=== PATIENT | female | born 1960 | race Caucasian/White ===

== ENCOUNTER → 2016-12-24 | Outpatient (CLI) | payer SELFPAY ==
--- NOTE | 2016-12-25 08:26 | MM ---
Reason for exam: screening (asymptomatic). Last mammogram was performed 2 years and 8 months ago. History: Patient is postmenopausal. Family history of breast cancer in paternal aunt and breast cancer in maternal aunt. Physical Findings: A clinical breast exam by your physician is recommended on an annual basis and results should be correlated with mammographic findings. MG 3D Screening Mammo W/Cad Bilateral CC and MLO view(s) were taken. Prior study comparison: May 05, 2014, mammogram, performed at [facility]. April 30, 2013, mammogram, performed at [facility]. The breast tissue is heterogeneously dense. This may lower the sensitivity of mammography. There is no discrete abnormality. ASSESSMENT: Negative, BI-RAD 1 RECOMMENDATION: Routine screening mammogram of both breasts in 1 year.
== END | disposition home or self-care (01) ==
LOC: RADMAMWWP 07:00
PROVIDERS: ATTEND Obstetrics & Gynecology
DX: Z12.31 Encounter for screening mammogram for malignant neoplasm of breast (principal); Z80.3 Family history of malignant neoplasm of breast
CPT/HCPCS: 77063; G0202

== ENCOUNTER → 2017-12-30 | Outpatient (CLI) | payer OTHER ==
--- NOTE | 2017-12-31 11:24 | MM ---
Reason for exam: screening (asymptomatic). Last mammogram was performed 1 year ago. History: Patient is postmenopausal. Family history of breast cancer in paternal aunt and breast cancer in maternal aunt. Physical Findings: A clinical breast exam by your physician is recommended on an annual basis and results should be correlated with mammographic findings. MG 3D Screening Mammo W/Cad Bilateral CC and MLO view(s) were taken. Prior study comparison: December 24, 2016, bilateral MG 3d screening mammo w/cad. May 05, 2014, mammogram, performed at [facility]. There are scattered fibroglandular densities. No significant changes when compared with prior studies. ASSESSMENT: Negative, BI-RAD 1 RECOMMENDATION: Routine screening mammogram of both breasts in 1 year.
== END | disposition home or self-care (01) ==
LOC: RADMAMWWP 07:41
PROVIDERS: ATTEND Obstetrics & Gynecology
DX: Z12.31 Encounter for screening mammogram for malignant neoplasm of breast (principal); Z80.3 Family history of malignant neoplasm of breast
CPT/HCPCS: 77063; 77067

== ENCOUNTER 2021-01-31 08:16 | Day surgery (SDC) | payer OTHER ==
[2021-01-26 12:13] VITALS: BMI 29.2
[~2021-01-31 08:16] MED LIST: LIDOCAINE 1% (10MG/ML) FOR IV START INTRADERMA PRN
[2021-01-31 08:56] VITALS: TEMP 97.1
[2021-01-31] MEDS: LACTATED RINGERS 1,000 ML IV SCH ×2 (09:00→09:06)
[2021-01-31] MEDS ORDERED: LIDOCAINE 1% INJ 10MG/ML (20 ML MDV) ONE (09:07)
[2021-01-31] MEDS ORDERED: PROPOFOL 10 MG/ML 20 ML VIAL IV ONE (09:07)
--- NOTE | 2021-01-31 09:24 | P.PCN ---
Date of Procedure: 01/31/21 Procedure(s) Performed: BRIEF HISTORY: Patient is a 41-year-old pleasant white female scheduled for an elective colonoscopy as a part of screening for colorectal neoplasia. Her mother was diagnosed with colon cancer at age 70. PROCEDURE PERFORMED: Colonoscopy. PREOPERATIVE DIAGNOSIS: Screening for colon cancer and family history of colon cancer. IV sedation per Anesthesia. PROCEDURE: After informed consent was obtained, the patient, was brought into the endoscopy unit. IV sedation was administered by Anesthesia under continuous monitoring. Digital rectal examination was normal. Initially the Olympus CF-160 flexible video colonoscope was then inserted in the rectum, gradually advanced into the cecum without any difficulty. Careful examination was performed as the scope was gradually being withdrawn. Ileocecal valve and the appendiceal orifice were visualized and appeared normal. Prep was excellent. Mucosa of the cecum, ascending colon, transverse colon, descending colon, sigmoid colon, and rectum appeared normal. Retroflexion was performed in the rectum and no lesions were seen. The patient tolerated the procedure well. IMPRESSION: Normal-appearing colon from rectum to cecum with no evidence of colorectal neoplasia. RECOMMENDATIONS: Findings of this examination were discussed with the patient is a family. She was advised to have a repeat screening coloscopy every 5 years because of the strong family history of colon cancer..
[2021-01-31 09:46] VITALS: BP 109/68; PULSE 66; RESP 18
== END 2021-01-31 10:05 | disposition home or self-care (01) ==
LOC: ORWHC2ENDO 08:16
PROVIDERS: ATTEND Internal Medicine Gastroenterology
DX: Z12.11 Encounter for screening for malignant neoplasm of colon (principal); Z80.0 Family history of malignant neoplasm of digestive organs; R25.1 Tremor, unspecified; R19.4 Change in bowel habit; Z79.899 Other long term (current) drug therapy
CPT/HCPCS: J2001; J2704; G0105

== ENCOUNTER → 2022-07-02 | Outpatient (CLI) | payer OTHER ==
--- NOTE | 2022-07-02 09:25 | MM ---
Reason for Exam: Screening (asymptomatic). Last mammogram was performed 1 year(s) and 3 month(s) ago. Patient History: Menarche at age 18. First Full-Term at age 32. Late child-bearing (after 30). Postmenopausal. Patient has history of breast feeding. Paternal aunt had breast cancer. Maternal aunt had breast cancer. Risk Values: Brooke 5 year model risk: 1.8%. NCI Lifetime model risk: 9.1%. Prior Study Comparison: 04/30/2013 Screening Mammogram, [facility]. 05/05/2014 Screening Mammogram, [facility]. 12/24/2016 Bilateral Screening Mammogram, [facility]. 12/30/2017 Bilateral Screening Mammogram, [facility]. 04/26/2021 Bilateral MG 3D screening mammo w/cad, [facility]. Tissue Density: The breast tissue is heterogeneously dense. This may lower the sensitivity of mammography. Findings: Analyzed By CAD. There is no suspicious group of microcalcifications or new suspicious mass in either breast. Overall Assessment: Negative, BI-RAD 1 Management: Screening Mammogram of both breasts in 1 year. A clinical breast exam by your physician is recommended on an annual basis and results should be correlated with mammographic findings. Electronically signed and approved by: Juan Hu D.O.
== END | disposition home or self-care (01) ==
LOC: RADMAMWWP 06:42
PROVIDERS: ATTEND Obstetrics & Gynecology
DX: Z12.31 Encounter for screening mammogram for malignant neoplasm of breast (principal); Z78.0 Asymptomatic menopausal state; Z80.3 Family history of malignant neoplasm of breast
CPT/HCPCS: 77063; 77067

== ENCOUNTER → 2023-08-28 | Outpatient (CLI) | payer OTHER ==
--- NOTE | 2023-08-28 20:22 | MM ---
Reason for Exam: Screening (asymptomatic). Last mammogram was performed 1 year(s) and 1 month(s) ago. Patient History: Menarche at age 18. First Full-Term at age 32. Late child-bearing (after 30). Postmenopausal. Patient has history of breast feeding. Paternal aunt had breast cancer. Maternal aunt had breast cancer. Risk Values: Brooke 5 year model risk: 1.9%. NCI Lifetime model risk: 8.9%. Prior Study Comparison: 12/24/2016 Bilateral Screening Mammogram, [facility]. 12/30/2017 Bilateral Screening Mammogram, [facility]. 04/26/2021 Bilateral MG 3D screening mammo w/cad, [facility]. 07/02/2022 Bilateral MG 3D screening mammo w/cad, [facility]. Tissue Density: The breasts are heterogeneously dense, which may obscure small masses. Findings: Analyzed By CAD. Poorly defined regional density in the right axilla has developed in the interval. Further evaluation is recommended. On the left, gradually enlarging focal asymmetry posterior upper quadrant for which further evaluation is recommended. Overall Assessment: Incomplete: need additional imaging evaluation, BI-RAD 0 Management: Special View Mammogram of both breasts. Diagnostic Breast Ultrasound of both breasts. Additional views right breast to include 3-D XCCL, spot 3-D MLO, and 3-D lateral views. Additional views left breast. Bilateral targeted ultrasounds. [facility] will attempt to contact patient to return for supplemental views and ultrasound if indicated. Electronically signed and approved by: Ivone Bradley M.D. Radiologist
== END | disposition home or self-care (01) ==
LOC: RADMAMWWP 08:10
PROVIDERS: ATTEND Obstetrics & Gynecology
DX: Z12.31 Encounter for screening mammogram for malignant neoplasm of breast (principal); Z80.3 Family history of malignant neoplasm of breast; Z78.0 Asymptomatic menopausal state
CPT/HCPCS: 77063; 77067

== ENCOUNTER → 2023-09-04 | Outpatient (CLI) | payer OTHER ==
--- NOTE | 2023-09-04 08:51 | MM ---
Reason for Exam: Additional evaluation requested from abnormal screening. Last screening mammogram was performed less than 1 month ago. Patient History: Menarche at age 18. First Full-Term at age 32. Late child-bearing (after 30). Postmenopausal. Patient has history of breast feeding. Paternal aunt had breast cancer. Maternal aunt had breast cancer. Risk Values: Brooke 5 year model risk: 1.9%. NCI Lifetime model risk: 8.9%. Prior Study Comparison: 07/02/2022 Bilateral MG 3D screening mammo w/cad, [facility]. 08/28/2023 Bilateral MG 3D screening mammo w/cad, [facility]. Tissue Density: The breasts are heterogeneously dense, which may obscure small masses. Findings: Analyzed By CAD. The strandy area of asymmetric density within the right axilla improves on spot 3-D MLO view. The overall appearance to the axillary lymph nodes here is unchanged. On the left, reniform shape to the posterior upper-outer quadrant isodense to low density nodularity, suspect a low axillary tail lymph node which is larger compared to older 2017 prior. Ultrasound can be performed. Overall Assessment: Incomplete: need additional imaging evaluation, BI-RAD 0 Management: Diagnostic Breast Ultrasound of both breasts. Electronically signed and approved by: Ivone Bradley M.D. Radiologist
--- NOTE | 2023-09-04 09:28 | USB ---
Reason for Exam: Additional evaluation requested from abnormal screening. Patient History: Menarche at age 18. First Full-Term at age 32. Late child-bearing (after 30). Postmenopausal. Patient has history of breast feeding. Paternal aunt had breast cancer. Maternal aunt had breast cancer. Risk Values: Brooke 5 year model risk: 1.9%. NCI Lifetime model risk: 8.9%. Technique: Method: Targeted. Prior Study Comparison: 04/26/2021 Bilateral MG 3D screening mammo w/cad, [facility]. 07/02/2022 Bilateral MG 3D screening mammo w/cad, [facility]. 08/28/2023 Bilateral MG 3D screening mammo w/cad, [facility]. Findings: The upper outer quadrant of the left breast, the axilla of both breasts and the retroareolar of the left breast were scanned. On the right, targeted axial ultrasound shows no abnormal solid or cystic lesion. Some lymph nodes are present, some of these cortices are borderline at 3 mm but uniform in appearance and appear to be unchanged on mammogram. On the left, scanning of the upper outer quadrant, axilla, and subareolar region. Subareolar duct ectasia is noted. At the 2:00 position, 8 cm from the nipple, there is a 1.7 x 1.6 x 0.5 cm probable cyst cluster, likely mammographic correlate. Six-month follow-up recommended. No other solid or cystic lesion or axillary lymphadenopathy. Overall Assessment: Probably benign, BI-RAD 3 Management: Diagnostic Breast Ultrasound of the left breast in 6 months. For a probable cyst cluster, likely mammographic correlate two o'clock position posteriorly. A clinical breast exam by your physician is recommended on an annual basis and results should be correlated with mammographic findings. This exam should not preclude additional follow-up of suspicious palpable abnormalities. Results were given to the patient verbally at the time of exam. Electronically signed and approved by: Ivone Bradley M.D. Radiologist
== END | disposition home or self-care (01) ==
LOC: RADMAMWWP 08:08
PROVIDERS: ATTEND Obstetrics & Gynecology
DX: N60.42 Mammary duct ectasia of left breast (principal); R92.333 Mammographic heterogeneous density, bilateral breasts; Z80.3 Family history of malignant neoplasm of breast; Z78.0 Asymptomatic menopausal state
CPT/HCPCS: 77062; 77066

== ENCOUNTER → 2024-03-15 | Outpatient (CLI) | payer OTHER ==
--- NOTE | 2024-03-15 10:17 | USB ---
Reason for Exam: Follow-up at short interval from prior study. Patient History: Menarche at age 18. First Full-Term at age 32. Late child-bearing (after 30). Postmenopausal. Patient has history of breast feeding. Paternal aunt had breast cancer. Maternal aunt had breast cancer. Risk Values: Brooke 5 year model risk: 1.9%. NCI Lifetime model risk: 8.6%. Technique: Method: Targeted. Prior Study Comparison: 07/02/2022 Bilateral MG 3D screening mammo w/cad, [facility]. 08/28/2023 Bilateral MG 3D screening mammo w/cad, [facility]. 09/04/2023 Bilateral MG 3D work up w/cad JEFFY, [facility]. Findings: The upper outer quadrant of the left breast, the axilla of the left breast and the retroareolar of the left breast were scanned. Complex cyst cluster redemonstrated at the left 2:00 position 8 cm from the nipple measuring 1.3 x 0.5 cm and appears to be essentially unchanged from prior study. There are also prominent ducts seen without definite lesion. Overall Assessment: Probably benign, BI-RAD 3 Management: Diagnostic Breast Ultrasound of the left breast in 6 months. A clinical breast exam by your physician is recommended on an annual basis and results should be correlated with mammographic findings. This exam should not preclude additional follow-up of suspicious palpable abnormalities. Results were given to the patient verbally at the time of exam. [facility], , 03/15/2024 9:56 AM. Electronically signed and approved by: Elmer Hill M.D. Radiologis
== END | disposition home or self-care (01) ==
LOC: RADUSWWP 09:14
PROVIDERS: ATTEND Obstetrics & Gynecology
DX: R92.8 Other abnormal and inconclusive findings on diagnostic imaging of breast (principal); Z80.3 Family history of malignant neoplasm of breast; Z78.0 Asymptomatic menopausal state